=== PATIENT | male | born 1965 | race Caucasian/White ===

== ENCOUNTER 2019-08-31 11:20 | Emergency (ER) | payer BC ==
--- OUTSIDE RECORDS SUMMARY | 2019-08-31 12:04 | XMS REPORT | Continuity of Care Document ---
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 Onset: 09/12/2011 Indigestion Rai Benoit M.D. Onset: 09/12/2011 Mixed hyperlipidemia Rai Benoit M.D. Onset: 09/12/2011 Tobacco user Rai Benoit M.D. Onset: 09/12/2011 Peptic reflux disease Rai Benoit M.D. Onset: 09/12/2011 Umbilical hernia Rai Benoit M.D. Onset: 04/12/2012 Osteoarthritis Rai Benoit M.D. Onset: 10/01/2012 Blood chemistry abnormal Rai Benoit M.D. Onset: 10/01/2012 Gout Rai Benoit M.D. Onset: 10/01/2012 Essential hypertension Rai Benoit M.D. Onset: 07/30/2015 Social History Type Date Description Comments Sex Unknown Tobacco Use Start: Unknown Current Cigarette Smoker pt is a pack a day smoker for 25 years ETOH Use Occasionally consumes alcohol Tobacco Use Start: Unknown Patient is a current smoker, smokes every day Smoking Status Reviewed: 06/21/19 Patient is a current smoker, smokes every day Seat Belt/Car Seat Always uses seat belt Allergies, Adverse Reactions, Alerts Active Allergies Reaction Severity Comments Date Cassius Inhibitors 09/12/2011 Medications Active Medications SIG Qnty Indications Ordering Provider Date Amoxicillin 1 tab by mouth 14caps J20.9 Rai Benoit, 08/13/2019 500mg twice a day M.D. Capsules Prednisone 3 tabs for 3 18tabs J20.9 Rai Benoit, 08/13/2019 20mg Tablets days, then 2 M.D. tabs for 3 days then 1 tab for 3 days Potassium Chloride ER 1 Tab PO Daily 90tabs E87.6 Rai Benoit, 2019 M.D. 10Meq Tablets ER Ibuprofen 1 by mouth three 90tabs M10.9 Rai Benoit, 05/09/2019 800mg Tablets times a day as M.D. needed M15.9 Hydrochlorothiazide take 1 tablet by 90tabs I10 Rai Benoit, 2018 25mg Tablets mouth once daily M.D. Ventolin HFA 2 puffs q4-6 36gm J44.9 Rai Benoit, 06/04/2013 108(90Base) mcg/Act hours as needed M.D. Aerosol Colcrys 1 tab by mouth 90tabs M10.9 Rai Benoit, 04/10/2013 0.6mg Tablets every day M.D. Dexilant 1 by mouth every 90caps K30 Rai Benoit, 09/15/[address] day M.D. K21.0 Norvasc 1 by mouth every day 90tabs I10 Rai Benoit M.DMaxim 09/12/2011 10mg Tablets History Medications Knee Brace Adjustable on 12h off 12h 1units Rai Benoit, 05/09/2019 - Hinged/Maximum Support M.D. [facility] CPT Code Status Date Vaccine Lot # [id number] Given 04/17/2013 Flu Vaccine [id number] Given 04/12/2012 Flu Vaccine [id number] Given 05/13/2010 TDaP 11760 Given 05/13/2010 Flu Vaccine [id number] Refused 06/17/2019 Flu Virus Vaccine, Quadrivalent, Slit Virus, Im Use Vital Signs Date Vital Result Comment 08/13/2019 1:46pm BP Systolic 148 mmHg BP Diastolic 76 mmHg Height 72 inches 6'0" Weight 262.00 lb BMI (Body Mass Index) 35.5 kg/m2 Heart Rate 99 /min Respiratory Rate 16 /min 06/21/2019 8:44am BP Systolic 160 mmHg BP Diastolic 82 mmHg BP Systolic Recheck 158 mmHg BP Diastolic Recheck 76 mmHg Height 72 inches 6'0" Weight 265.00 lb BMI (Body Mass Index) 35.9 kg/m2 Heart Rate 107 /min Respiratory Rate 16 /min Results Test Acquired Date Facility Test Result H/L Range Note CBC With Diff 06/21/2019 [facility] WBC 9.0 10*3/uL (4.1-11.0) [address] (607)- - RBC 5.15 10*6/uL (4.60-6.10) HGB 16.8 g/dL (13.5-18.0) HCT 47.6 % (41.0-53.0) MCV 92.5 fL (80.0-95.0) MCH 32.6 pg High (27.0-32.0) MCHC 35.3 g/dL (32.0-36.0) RDW 12.9 % (10.5-14.5) PLT 253 10*3/uL (150-450) MPV 9.2 fL (7.1-10.7) Neut % 47.6 % (35.0-75.0) Lymph % 41.5 % (16.0-52.0) Johnston % 8.3 % High (0.0-8.0) Eos % 2.2 % (0.0-5.0) Baso % 0.4 % (0.0-4.0) Neut # 4.3 10*3/uL (1.8-7.7) Lymph # 3.7 10*3/uL (1.2-4.8) Johnston # 0.7 10*3/uL (0.0-0.8) Eos # 0.2 10*3/uL (0.0-0.5) Baso # 0.0 10*3/uL (0.0-0.2) CMP 06/21/2019 [facility] Sodium 143 mmol/L (136-145) [address] [facility] (606)- - Potassium 3.0 mmol/L Low (3.6-5.2) Chloride 101 mmol/L (100-108) Co2 35 mmol/L High (22-31) Anion Gap 7 mmol/L (7-16) Urea Nitrogen 9 mg/dL (7-24) Creatinine 0.93 mg/dL (0.80-1.30) BUN/Creat Ratio 9.7 RATIO Low (10.0-20.0) Glucose 136 mg/dL High (70-99) Calcium 9.0 mg/dL (8.4-10.2) Total Protein 7.3 g/dL (6.4-8.2) Albumin 3.8 g/dL (3.5-4.6) Globulin 3.5 g/dL (2.7-4.3) Alb/Glob Ratio 1.1 RATIO Alkaline Phosphatase 117 U/L (45-117) Bilirubin,Total 0.8 mg/dL (0.0-1.0) Ast (Sgot) 139 U/L High (11-39) Alt (SGPT) 191 U/L High (12-78) GFR >60 ml/min/1.73m2 (>59) GFR ( Amer) >60 ml/min/1.73m2 (>59) GFR Interpretation <SEE NOTE> 1 Hemoglobin A1c 06/21/2019 [facility] Hemoglobin A1c @ 6.0 % (4.0-6.0) 2 [address] [facility] (146)- - Est Average Glucose 126 mg/dL Lipid 06/21/2019 [facility] Cholesterol @ 189 mg/dL (0-200) [address] (007)- - Triglyceride @ 152 mg/dL (30-200) HDL Cholesterol @ 40 mg/dL Low (>40) 3 Chol/HDL Ratio 4.7 RATIO 4 LDL Chol (Calc) 119 mg/dL (<130) 5 Laboratory 06/21/2019 [facility] TSH,Ultrasensitive @ 4.640 High (0.360 -4.170) test finding [address] [facility] mIU/L (087)- - Uric Acid 9.9 mg/dL High (3.5-7.2) PSA Free And Total 06/21/2019 [facility] PSA Total 0.7 ng/mL (0.0-4.0 ) [facility] (607)- - PSA Free 0.2 ng/mL PSA % Free 29 % 6 Laboratory test 06/21/2019 [facility] 25 Hydroxy Vit 31 ng/mL (31-100 ) 7 finding Adeline Castelan @ (607)- - Esr 5 mm/h (0-20) 1 NORMAL KIDNEY FUNCTION OR MILD DISEASE - GFR >OR= 60 CHRONIC KIDNEY DISEASE - GFR 15 - 59 RENAL FAILURE - GFR <15 Est. GFR calculation based on the MDRD study equation, which assumes a steady state for creatinine. Est. GFR should not be used for medication dosing. 2 Performed using LEHR immunoassay. Care must be taken when interpreting HbA1c results in patients with a hemoglobin variant or decreased erythrocyte lifespan. Values 5.7 - 6.4% suggest prediabetes. Values >=6.5% are diagnostic for diabetes. REFERENCE: DIABETES CARE 2018: 41(S13-S27). 3 PER NCEP ATP III GUIDELINES: RESULTS LOWER THAN 40 MG/DL ARE SUGGESTIVE OF INCREASED RISK FOR CORONARY ARTERY DISEASE. RESULTS > OR = TO 60 MG/DL ARE CONSIDERED A NEGATIVE RISK FACTOR. 4 INTERPRETATION OF CHOL-HDL RATIO CHD RISK FEMALE MALE VERY HIGH >8.3 >14.3 HIGH 5.6- 8.3 6.7- 14.3 AVERAGE 3.7- 5.6 4.0- 6.7 BELOW AVERAGE 2.5- 3.7 2.7- 4.0 PROTECTED <2.5 <2.7 5 PER NCEP ATP III GUIDELINES: OPTIMAL < 100 NEAR OPTIMAL 100 - 129 BORDERLINE HIGH 130 - 159 HIGH 160 - 189 VERY HIGH > 189 6 % FREE PSA PROBABILITY OF CANCER 0 - 10% 56% 10 - 15% 28% 15 - 20% 20% 20 - 25% 16% GREATER THAN 25% 8% THE FREE PSA PERCENTAGE IS AN AID IN DISTINGUISHING PROSTATE CANCER FROM BENIGN PROSTATIC CONDITIONS IN MEN AGE 50 AND OLDER WITH A TOTAL PSA BETWEEN 3 AND 10 NG/ML AND NEGATIVE DIGITAL RECTAL EXAMINATION FINDINGS. PROSTATIC BIOPSY IS REQUIRED FOR THE DIAGNOSIS OF CANCER. (See: KEITH 1998; 279: 8171-5853) METHOD USED TO ASSAY BOTH FREE PSA AND TOTAL PSA IS SIEMENS inmobly LOCI CHEMILUMINESCENT IMMUNOASSAY (CALIBRATION TRACEABLE TO WHO , 1998, 96/668). RESULTS SHOULD NOT BE INTERPRETED ABSOLUTE EVIDENCE FOR THE PRESENCE OR ABSENCE OF MALIGNANT DISEASE. VALUES OBTAINED WITH DIFFERENT ASSAY METHODS OR KITS CANNOT BE USED INTERCHANGEABLY. 7 A REVIEW OF THE LITERATURE SUGGESTS THE FOLLOWING RANGES FOR THE CLASSIFICATION OF 25-OH VITAMIN D STATUS: VITAMIN D STATUS 25-OH VITAMIN D DEFICIENCY <20 NG/ML INSUFFICIENCY 20-30 NG/ML SUFFICIENCY 31 - 100 NG/ML TOXICITY > 100 NG/ML A PEDIATRIC REFERENCE RANGE HAS NOT BEEN ESTABLISHED USING THIS METHOD. Procedures Date Code Description Status 08/13/2019 55884 EKG Completed 04/05/2018 [id number] Colonoscopy Completed Medical Devices Description No Information Available Encounters Type Date Location Provider Dx Diagnosis Office Visit 06/21/2019 Rai Moss, I10 Essential (primary) 9:15a M.D. hypertension E78.2 Mixed hyperlipidemia R73.01 Impaired fasting glucose M10.9 Gout, unspecified R97.20 Elevated prostate specific antigen [PSA] J44.9 Chronic obstructive pulmonary disease, unspecified K21.0 Gastro-esophageal reflux disease with esophagitis F10.10 Alcohol abuse, uncomplicated K30 Functional dyspepsia F17.210 Nicotine dependence, cigarettes, uncomplicated L20.9 Atopic dermatitis, unspecified J30.9 Allergic rhinitis, unspecified K42.9 Umbilical hernia without obstruction or gangrene M15.9 Polyosteoarthritis, unspecified M20.10 Hallux valgus (acquired), unspecified foot E66.3 Overweight K76.9 Liver disease, unspecified E55.9 Vitamin D deficiency, unspecified 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 I10 Essential ( primary) hypertension E78.2 Mixed hyperlipidemia R73.01 Impaired fasting glucose M10.9 Gout, unspecified R97.20 Elevated prostate specific antigen [PSA] J44.9 Chronic obstructive pulmonary disease, unspecified K21.0 Gastro-esophageal reflux disease with esophagitis F10.10 Alcohol abuse, uncomplicated K30 Functional dyspepsia F17.210 Nicotine dependence, cigarettes, uncomplicated L20.9 Atopic dermatitis, unspecified J30.9 Allergic rhinitis, unspecified K42.9 Umbilical hernia without obstruction or gangrene M15.9 Polyosteoarthritis, unspecified M20.10 Hallux valgus (acquired), unspecified foot E66.3 Overweight K76.9 Liver disease, unspecified E55.9 Vitamin D deficiency, unspecified 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, bilateral M79.604 Pain in right leg R05 Cough R09.81 Nasal congestion H90.6 Mixed conductive and sensorineural hearing loss, bilateral G47.33 Obstructive sleep apnea (adult) (pediatric) M25.561 Pain in right knee Z23 Encounter for immunization Assessments Date Code Description Provider 08/13/2019 I10 Essential (primary) hypertension John Casillas, [employer] 08/13/2019 E78.2 Mixed hyperlipidemia John Casillas, [employer] 08/13/2019 R73.01 Impaired fasting glucose John Casillas, [employer] 08/13/2019 M10.9 Gout, unspecified John Casillas, [employer] 08/13/2019 R97.20 Elevated prostate specific antigen [PSA] John Casillas, [employer] 08/13/2019 J44.9 Chronic obstructive pulmonary disease, John Casillas, [employer] unspecified 08/13/2019 K21.0 Gastro-esophageal reflux disease with John Casillas, [employer] esophagitis 08/13/2019 F10.10 Alcohol abuse, uncomplicated John Casillas, [employer] 08/13/2019 K30 Functional dyspepsia John Casillas, [employer] 08/13/2019 F17.210 Nicotine dependence, cigarettes, John Casillas, [employer] uncomplicated 08/13/2019 L20.9 Atopic dermatitis, unspecified John Casillas, [employer] 08/13/2019 J30.9 Allergic rhinitis, unspecified Casillas, John P, [employer] 08/13/2019 K42.9 Umbilical hernia without obstruction or Casillas, John Coleman, [employer] gangrene 08/13/2019 M15.9 Polyosteoarthritis, unspecified Casillas, John P, [employer] 08/13/2019 M20.10 Hallux valgus (acquired), unspecified foot Casillas, John P, [employer] 08/13/2019 E66.3 Overweight Casillas, John P, [employer] 08/13/2019 K76.9 Liver disease, unspecified Casillas, John P, [employer] 08/13/2019 E55.9 Vitamin D deficiency, unspecified Casillas, John P, [employer] 08/13/2019 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6 Hypokalemia John Casillas P, [employer] 08/13/2019 D48.5 Neoplasm of uncertain behavior of skin John Casillas, [employer] 08/13/2019 E03.9 Hypothyroidism, unspecified CasillasJohn P, [employer] 08/13/2019 J20.9 Acute bronchitis, unspecified John Casillas P, [employer] 07/12/2019 I10 Essential (primary) hypertension Rai Benoit M.D. 07/12/2019 E78.2 Mixed hyperlipidemia Rai Benoit M.D. 07/12/2019 R73.01 Impaired fasting glucose Rai Benoit M.D. 07/12/2019 M10.9 Gout, unspecified Rai Benoit M.D. 07/12/2019 R97.20 Elevated prostate specific antigen [PSA] Rai Benoit M.D. 07/12/2019 J44.9 Chronic obstructive pulmonary disease, Rai Benoit M.D. unspecified 07/12/2019 K21.0 Gastro-esophageal reflux disease with Rai Benoit M.D. esophagitis 07/12/2019 F10.10 Alcohol abuse, uncomplicated Rai Benoit M.D. 07/12/2019 K30 Functional dyspepsia Rai Benoit M.D. 07/12/2019 F17.210 Nicotine dependence, cigarettes, Rai Benoit M.D. uncomplicated 07/12/2019 L20.9 Atopic dermatitis, unspecified Rai Benoit M.D. 07/12/2019 J30.9 Allergic rhinitis, unspecified Rai Benoit M.D. 07/12/2019 K42.9 Umbilical hernia without obstruction or Rai Benoit M.D. gangrene 07/12/2019 M15.9 Polyosteoarthritis, unspecified Rai Benoit M.D. 07/12/2019 M20.10 Hallux valgus (acquired), unspecified foot Rai Benoit M.D. 07/12/2019 E66.3 Overweight Rai Benoit M.D. 07/12/2019 K76.9 Liver disease, unspecified Rai Benoit M.D. 07/12/2019 E55.9 Vitamin D deficiency, unspecified Rai Benoit M.D. 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 07/12/2019 M79.604 Pain in right leg Rai Benoit M.D. 07/12/2019 R05 Cough Rai Benoit M.D. 07/12/2019 R09.81 Nasal congestion Rai Benoit M.D. 07/12/2019 H90.6 Mixed conductive and sensorineural hearing Rai Benoit M.D. loss, bilateral 07/12/2019 G47.33 Obstructive sleep apnea (adult) (pediatric) Rai Benoit M.D. 07/12/2019 H92.03 Otalgia, bilateral Rai Benoit M.D. 07/05/2019 I10 Essential (primary) hypertension Rai Benoit M.D. 07/05/2019 E78.2 Mixed hyperlipidemia Rai Benoit M.D. 07/05/2019 R73.01 Impaired fasting glucose Rai Benoit M.D. 07/05/2019 M10.9 Gout, unspecified Rai Benoit M.D. 07/05/2019 R97.20 Elevated prostate specific antigen [PSA] Rai Benoit M.D. 07/05/2019 J44.9 Chronic obstructive pulmonary disease, Rai Benoit M.D. unspecified 07/05/2019 K21.0 Gastro-esophageal reflux disease with Rai Benoit M.D. esophagitis 07/05/2019 F10.10 Alcohol abuse, uncomplicated Rai Benoit M.D. 07/05/2019 K30 Functional dyspepsia Rai Benoit M.D. 07/05/2019 F17.210 Nicotine dependence, cigarettes, Rai Benoit M.D. uncomplicated 07/05/2019 L20.9 Atopic dermatitis, unspecified Rai Benoit M.D. 07/05/2019 J30.9 Allergic rhinitis, unspecified Rai Benoit M.D. 07/05/2019 K42.9 Umbilical hernia without obstruction or Rai Benoit M.D. gangrene 07/05/2019 M15.9 Polyosteoarthritis, unspecified Rai Benoit M.D. 07/05/2019 M20.10 Hallux valgus (acquired), unspecified foot Rai Benoit M.D. 07/05/2019 E66.3 Overweight Rai Benoit M.D. 07/05/2019 K76.9 Liver disease, unspecified Rai Benoit M.D. 07/05/2019 E55.9 Vitamin D deficiency, unspecified Rai Benoit M.D. 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 07/05/2019 M79.604 Pain in right leg Rai Benoit M.D. 07/05/2019 R05 Cough Rai Benoit M.D. 07/05/2019 R09.81 Nasal congestion Rai Benoit M.D. 07/05/2019 H90.6 Mixed conductive and sensorineural hearing Rai Benoit M.D. loss, bilateral 07/05/2019 G47.33 Obstructive sleep apnea (adult) (pediatric) Rai Benoit M.D. 07/05/2019 H92.03 Otalgia, bilateral Rai Benoit M.D. 06/21/2019 I10 Essential (primary) hypertension Rai Benoit M.D. 06/21/2019 E78.2 Mixed hyperlipidemia Rai Benoit M.D. 06/21/2019 R73.01 Impaired fasting glucose Rai Benoit M.D. 06/21/2019 M10.9 Gout, unspecified Rai Benoit M.D. 06/21/2019 R97.20 Elevated prostate specific antigen [PSA] Rai Benoit M.D. 06/21/2019 J44.9 Chronic obstructive pulmonary disease, Rai Benoit M.D. unspecified 06/21/2019 K21.0 Gastro-esophageal reflux disease with Rai Benoit M.D. esophagitis 06/21/2019 F10.10 Alcohol abuse, uncomplicated Rai Benoit M.D. 06/21/2019 K30 Functional dyspepsia Rai Benoit M.D. 06/21/2019 F17.210 Nicotine dependence, cigarettes, Rai Benoit M.D. uncomplicated 06/21/2019 L20.9 Atopic dermatitis, unspecified Rai Benoit M.D. 06/21/2019 J30.9 Allergic rhinitis, unspecified Rai Benoit M.D. 06/21/2019 K42.9 Umbilical hernia without obstruction or Rai Benoit M.D. gangrene 06/21/2019 M15.9 Polyosteoarthritis, unspecified Rai Benoit M.D. 06/21/2019 M20.10 Hallux valgus (acquired), unspecified foot Rai Benoit M.D. 06/21/2019 E66.3 Overweight Rai Benoit M.D. 06/21/2019 K76.9 Liver disease, unspecified Rai Benoit M.D. 06/21/2019 E55.9 Vitamin D deficiency, unspecified Rai Benoit M.D. 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 06/21/2019 M79.604 Pain in right leg Rai Benoit M.D. 06/21/2019 R05 Cough Rai Benoit M.D. 06/21/2019 R09.81 Nasal congestion Rai Benoit M.D. 06/21/2019 H90.6 Mixed conductive and sensorineural hearing Rai Benoit M.D. loss, bilateral 06/21/2019 G47.33 Obstructive sleep apnea (adult) (pediatric) Rai Benoti M.D. 06/21/2019 M25.561 Pain in right knee Rai Benoit M.D. 06/21/2019 H92.03 Otalgia, bilateral CyRai M.D. 05/09/2019 I10 Essential (primary) hypertension Basil Salgado, N.P. 05/09/2019 E78.2 Mixed hyperlipidemia Basil Salgado, N.P. 05/09/2019 R73.01 Impaired fasting glucose Basil Salgado, N.P. 05/09/2019 M10.9 Gout, unspecified Basil Salgado, N.P. 05/09/2019 R97.20 Elevated prostate specific antigen [PSA] Basil Salgado, N.P. 05/09/2019 J44.9 Chronic obstructive pulmonary disease, Basil Salgado, N.P. unspecified 05/09/2019 K21.0 Gastro-esophageal reflux disease with Basil Salgado, N.P. esophagitis 05/09/2019 F10.10 Alcohol abuse, uncomplicated Basil Salgado, N.P. 05/09/2019 K30 Functional dyspepsia Basil Salgado N.P. 05/09/2019 F17.210 Nicotine dependence, cigarettes, Basil Salgado, N.P. uncomplicated 05/09/2019 L20.9 Atopic dermatitis, unspecified Basil Salgado, N.P. 05/09/2019 J30.9 Allergic rhinitis, unspecified Basil Salgado, N.P. 05/09/2019 K42.9 Umbilical hernia without obstruction or Basil Salgado, N.P. gangrene 05/09/2019 M15.9 Polyosteoarthritis, unspecified Basil Salgado, N.P. 05/09/2019 M20.10 Hallux valgus (acquired), unspecified foot Basil Salgado, N.P. 05/09/2019 E66.3 Overweight Basil Salgado, N.P. 05/09/2019 K76.9 Liver disease, unspecified Basil Salgado, N.P. 05/09/2019 E55.9 Vitamin D deficiency, unspecified Basil Salgado, N.P. 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 05/09/2019 M79.604 Pain in right leg Basil Salgado, N.P. 05/09/2019 R05 Cough Basil Salgado, N.P. 05/09/2019 R09.81 Nasal congestion Basil Salgado N.P. 05/09/2019 H90.6 Mixed conductive and sensorineural hearing Basil Salgado N.P. loss, bilateral 05/09/2019 G47.33 Obstructive sleep apnea (adult) (pediatric) Basil Salgado N.P. 05/09/2019 M25.561 Pain in right knee Basil Salgado N.P. 05/09/2019 Z23 Encounter for immunization Basil Salgado N.P. Plan of Treatment 08/13/2019 - John Casillas, NPI10 Essential (primary) hypertensionComments: CHECK BP TIW ( PRN)DIET AND FLUID COUNSELING LOW SODIUM DIETWT LOSSF/U LAB SMOKING XJJCXQKZYG84.2 Mixed hyperlipidemiaComments:DIET REVIEWED CONTINUE DIETWT LOSSF/U LAB FBWR73.01 Impaired fasting glucoseComments:F/U HGAICFS QAC AN HS PRNLOW GLUCOSE DIETM10.9 Gout, unspecifiedComments:EXERCISE/HEAT/MESSAGE TAKE MEDICATIONS DIRECTEDF/U DIRECTEDCALL WITH QUESTIONS OR CONCERNSWEIGHT BEARING UBEAZQWDWW47.20 Elevated prostate specific antigen [ PSA]Comments:OBSERVEF/U WITH UROLOGYASYMPTOMATIC AT THIS TIMEJ44.9 Chronic obstructive pulmonary disease, unspecifiedComments:INCREASE PO FLUIDRESTSMOKING AFKEOKWTGK49.0 Gastro-esophageal reflux disease with esophagitisComments:AVOID CAFFEINE, ETOH AND SPICY FOODSTUMS OR MYLANTA PRN CALL WITH PROBLEMS OR CONCERNSSMOKING QXXHILXPLY07.10 Alcohol abuse, uncomplicatedComments:ETOH ABSTINENCECOUNCELLING AND [id number] Functional dyspepsiaComments:AVOID CAFFEINE, ETOH AND SPICY FOODSTUMS OR MYLANTA PRN CALL WITH PROBLEMS OR CONCERNSSMOKING BXVHAEGGVH09.210 Nicotine dependence, cigarettes, uncomplicatedComments:SMOKING CESSATION COUNCELLING MORE THAN 4 MINUTES SPENT DISSUCUSING SMOKING CESSATION NVJTNIM01.9 Atopic dermatitis, unspecifiedComments :SKIN CARE INSTRUCTIONS LOTION OR BABY OIL 2-3 APPLICATION PER DAYUSE MOISTURIZING SOAPAVOID PROLONGED WATER EXPOSUREAVOID USING HOT WATER IN TDIPZEX35.9 Allergic rhinitis, unspecifiedComments:INCREASE PO FLUID USE ANTIHISTAMINE PRN SECOND HAND SMOKING AVOIDANCE SMOKING VKFLSWGHPP00.9 Umbilical hernia without obstruction or gangreneComments:STABLE ABDOMINAL BINDER PRNM15.9 Polyosteoarthritis, unspecifiedComments:EXERCISE/HEAT/ MESSAGETYLENOL OR MOTRIN PRNAVOID HEAVY LIFTINGWT LOSSM20.10 Hallux valgus ( acquired), unspecified footComments:EXERCISE/HEAT/MESSAGETYLENO OR MOTRIN PRNWT LOSSTHICK SHOESUSE SHOE YDWMAIIKO34.3 OverweightComments:WT LOSS OPTIONS EXERCISE INSTRUCTIONSDIET QVJGNMAKSHYD16.9 Liver disease, unspecifiedComments: ASYMPTOMATIC AND STABLEF/ULABAVOID ETOH RSLAMN47.9 Vitamin D deficiency, unspecifiedComments:INCREASE EXPOSURE TO SUNREVIEW OF DIET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, bilateralComments:[place],LAB BY TAUIYUZNSQYUUU49.604 Pain in right legComments:TYLENOL OR MOTRIN PRN EXERCISE/HEAT/NWPLAAHT74.6 Mixed conductive and sensorineural hearing loss, bilateralComments:OBSERVE F/U WITH ENT PRN SMOKING EKYKKZILXE92.33 Obstructive sleep apnea (adult) (pediatric)Comments: OBSERVEWT LOSS SMOKING TZFFVABDAE66.561 Pain in right kneeComments:[id number] HxhjhN92.02 Shortness of ssmvcfB16.6 HypokalemiaNew Medication:Potassium Chloride ER 10 Meq - 1 Tab PO DailyFollow up:1 mwjowM43.5 Neoplasm of uncertain behavior of skinReferral:[facility] [place], ZllstvvbxdzJ43.9 Hypothyroidism, tmrxkoazlqrH10.9 Acute bronchitis, unspecifiedNew Medication: Amoxicillin 500 mg - 1 tab by mouth twice a dayPrednisone 20 mg - 3 tabs for 3 days, then 2 tabs for 3 days then 1 tab for 3 days Functional Status Description No Information Available Mental Status Description No Information Available Referrals Refer to Dr Reason for Referral Status Appt Date [facility] [place] IRREGULAR MULTI COLOR RAISED LESION TO Created RIGHT POSTERIOR UPPER ARM [address] [place] [address] [phone]
--- OUTSIDE RECORDS SUMMARY | 2019-08-31 12:04 | XMS REPORT | Continuity of Care Document ---
:1965 External Reference #:[id number] Author Name John Casillas NP (transmitted by agent of provider [employer]) Address [address] [facility]/[address] [place] [address] Care Team Providers Name Role Phone Rai Benoit MD - Family Medicine Care Team Information Drafter Seismograph Problems Active Problems Provider Date Benign essential hypertension Ria Benoit M.D. Onset: 09/12/2011 Indigestion Rai Benoit [...] Benoit, 06/04/2013 108(90Base) mcg/Act hours as needed M.DMaxim Aerosol Colcrys 1 tab by mouth 90tabs M10.9 Rai Benoit, 04/10/2013 0.6mg Tablets every day M.DMaxim Dexilant 1 by mouth every 90caps K30 Rai Benoit, 09/15/[address] jean [place] K21.0 Norvasc 1 by mouth every day 90tabs I10 Rai Benoit M.D. 09/12/2011 10mg Tablets History Medications Knee Brace Adjustable on 12h off 12h 1units Rai Benoit, 05/09/2019 - Hinged/Maximum Support M.DMaxim 06/21/2019 [facility] [place] CPT Code Status Date Vaccine Lot # [id number] Given 04/17/2013 Flu Vaccine [id number] Given 04/12/2012 Flu Vaccine [id number] Given 05/13/2010 TDaP [id number] Given 05/13/2010 Flu Vaccine [id number] Refused 06/17/2019 Flu Virus Vaccine, Quadrivalent, Slit [...] Date Facility Test Result H/L Range Note CBS W/Automated 08/14/2019 [place] White Blood 9.4 K/uL Normal 3.4-10.5 1 Diff Count Red Blood Count 4.87 M/uL Normal 4.20-5.80 Hemoglobin 15.6 gm/dL Normal 12.8-17.0 Hematocrit 45.4 % Normal 38.0-48.0 Mean Cell Volume 93.2 fl Normal 80.0-96.0 Mean Corpuscular HGB 32.0 pg Normal 27.0-33.0 Mean Corpuscular HGB Conc 34.4 g/dL Normal 31.7-36.0 Platelet Count 224 K/uL Normal 155-360 Red Cell Distri Width SD 43.2 fl Normal 36-51 Red Cell Distri Width %CV 12.7 % Normal 11.6-15.8 Mean Platelet Volume 10.9 fl High 6.6-10.6 Neut% 50.8 % Normal 33.0-73.0 Lymph % 35.9 % Normal 20.0-42.0 [place] % 8.8 % Normal 0.0-10.0 Eo% 3.0 % Normal 0.0-6.6 Bas% 1.1 % Normal 0.0-1.1 Immature Grans 0.4 % Normal 0.0-5.0 NRBC % 0.0 /100WBC < 10/ 100 WBC Neut# 4.78 K/uL Normal 1.8-7.0 Lymph # 3.38 K/uL Normal 1.0-4.0 [place] # 0.83 K/uL High 0.0-0.8 Eos # 0.28 K/uL Normal 0.0-0.5 Baso # 0.10 K/uL Normal 0.0-0.1 Immature Grans Absolute 0.04 K/uL NRBC # 0.00 K/uL Basic Metabolic Panel 08/14/2019 [place] Glucose 143 mg/dL High 74-106 BUN 10 mg/dL Normal 7-18 Creatinine 0.7 mg/dL Normal 0.6-1.3 Glom Filtration Rate, Estimate >60 mL/min >60 If >60 mL/min >60 2 BUN/Creat 14.2 ratio Sodium 140 mmol/L Normal 136-145 Potassium 3.1 mmol/L Low 3.5-5.1 Chloride 103 mmol/L Normal 98-107 Carbon Dioxide 32 mmol/L Normal 21-32 Anion Gap 5 mEq/L Low 8-16 Calcium 8.9 mg/dL Normal 8.5-10.1 Ua RFX Micro & Culture II 08/13/2019 [place] Urine Color Yellow Yellow Urine Clarity Slightly Cloudy Clear Urine Glucose - Dipstick NEGATIVE mg/dL Negative Urine Bilirubin - Dipstick NEGATIVE Negative Urine Ketone NEGATIVE mg/dL Negative Urine Specific [place] 1.016 Normal 1.010-1.030 Urine Blood NEGATIVE Negative Urine PH 7.0 Normal 6.5-7.5 Urine Protein - Dipstick NEGATIVE mg/dL Negative Urine Urobilinogen - Dipstick < 2.0 mg/dL < 2.0 Urine Nitrite - Dipstick NEGATIVE Negative Urine Leuk Esterase NEGATIVE Negative Source: URINE, CLEAN CAT <SEE NOTE> 3 Aot Request 08/13/2019 [place] Aot Request Already done 4, 5 Tests to be added: MAGNESIUM CBC With Diff 06/21/2019 [facility] [place] WBC 9.0 10*3/uL (4.1-11.0) [address] [facility] (607)- - RBC 5.15 10*6/uL (4.60-6.10) HGB 16.8 g/dL (13.5-18.0) HCT 47.6 % (41.0-53.0) MCV 92.5 fL (80.0-95.0) MCH 32.6 pg High (27.0-32.0) MCHC 35.3 g/dL (32.0-36.0) RDW 12.9 % (10.5-14.5) PLT 253 10*3/uL (150-450) MPV 9.2 fL (7.1-10.7) Neut % 47.6 % (35.0-75.0) Lymph % 41.5 % (16.0-52.0) [place] % 8.3 % High (0.0-8.0) Eos % 2.2 % (0.0-5.0) Baso % 0.4 % (0.0-4.0) Neut # 4.3 10*3/uL (1.8-7.7) Lymph # 3.7 10*3/uL (1.2-4.8) [place] # 0.7 10*3/uL (0.0-0.8) Eos # 0.2 10*3/uL (0.0-0.5) Baso # 0.0 10*3/uL (0.0-0.2) CMP 06/21/2019 [facility] [place] Sodium 143 mmol/L (136-145) [address] [facility] (607)- - Potassium 3.0 mmol/L Low (3.6-5.2) Chloride [...] >60 ml/min/1.73m2 (>59) GFR Interpretation <SEE NOTE> 6 Hemoglobin A1c 06/21/2019 [facility] [place] Hemoglobin A1c @ 6.0 % (4.0-6.0) 7 [address] [place] (607)- - Est Average Glucose 126 mg/dL Lipid 06/21/2019 [facility] [place] Cholesterol @ 189 mg/dL (0-200) [address] [place] (607)- - Triglyceride @ 152 mg/dL (30-200) HDL Cholesterol @ 40 mg/dL Low (>40) 8 Chol/HDL Ratio 4.7 RATIO 9 LDL Chol (Calc) 119 mg/dL (<130) 10 Laboratory 06/21/2019 [facility] [place] TSH,Ultrasensitive @ 4.640 High (0.360 -4.170) test finding 113 [employer] mIU/L (607)- - Uric Acid 9.9 mg/dL High (3.5-7.2) PSA Free And Total 06/21/2019 [facility] [place] PSA Total 0.7 ng/mL (0.0-4.0 ) [address] [facility] (607)- - PSA Free 0.2 ng/mL PSA % Free 29 % 11 Laboratory test 06/21/2019 [facility] 25 Hydroxy Vit 31 ng/mL (31-100 ) 12 finding [address] [place] D @ (607)- - Esr 5 mm/h (0-20) 1 PARAXYSMAL AFIB W/RVR 2 Note: Persistent reduction for 3 months or more in an eGFR <60 mL/min/1.73 m2 defines CKD. Patients with eGFR values >/=60 mL/min/1.73 m2 may also have CKD if evidence of persistent proteinuria is present. The original MDRD equation for estimated GFR is not valid for patients less than 18 years of age. Additional information may be found at www.kdoqi.org. 3 URINE, CLEAN CATCH 4 IRREGULAR HEART BEAT/SENT BY DOCTOR 5 Tests: MAGNESIUM Instructions: 6 NORMAL KIDNEY FUNCTION OR MILD DISEASE - GFR >OR= 60 CHRONIC KIDNEY DISEASE - GFR 15 - 59 RENAL FAILURE - GFR <15 Est. GFR calculation based on the MDRD study equation, which assumes a steady state for creatinine. Est. GFR should not be used for medication dosing. 7 Performed using Siemens Bathgate immunoassay. Care must be taken when interpreting HbA1c results in patients with a hemoglobin variant or decreased erythrocyte lifespan. Values 5.7 - 6.4% suggest prediabetes. Values >=6.5% are diagnostic for diabetes. REFERENCE: DIABETES CARE 2018: 41(S13-S27). 8 PER NCEP ATP III GUIDELINES: RESULTS LOWER THAN 40 MG/DL ARE SUGGESTIVE OF INCREASED RISK FOR CORONARY ARTERY DISEASE. RESULTS > OR = TO 60 MG/DL ARE CONSIDERED A NEGATIVE RISK FACTOR. 9 INTERPRETATION OF CHOL-HDL RATIO CHD RISK FEMALE MALE VERY HIGH >8.3 >14.3 HIGH 5.6- 8.3 6.7- 14.3 AVERAGE 3.7- 5.6 4.0- 6.7 BELOW AVERAGE 2.5- 3.7 2.7- 4.0 PROTECTED <2.5 <2.7 10 PER NCEP ATP III GUIDELINES: OPTIMAL < 100 NEAR OPTIMAL 100 - 129 BORDERLINE HIGH 130 - 159 HIGH 160 - 189 VERY HIGH > 189 11 % FREE PSA PROBABILITY OF CANCER 0 [...] DIAGNOSIS OF CANCER. (See: KEITH 1998; 279: 7561-8178) METHOD USED TO ASSAY BOTH FREE PSA AND TOTAL PSA IS SIEMENS Anew OncologyTA LOCI CHEMILUMINESCENT IMMUNOASSAY (CALIBRATION TRACEABLE TO WHO 1998, 96/668). RESULTS SHOULD NOT BE INTERPRETED ABSOLUTE EVIDENCE FOR THE PRESENCE OR ABSENCE OF MALIGNANT DISEASE. VALUES OBTAINED WITH DIFFERENT ASSAY METHODS OR KITS CANNOT BE USED INTERCHANGEABLY. 12 A REVIEW OF THE LITERATURE SUGGESTS THE FOLLOWING RANGES FOR THE CLASSIFICATION OF 25-OH VITAMIN D STATUS: VITAMIN D STATUS 25-OH VITAMIN D DEFICIENCY <20 NG/ML INSUFFICIENCY 20-30 NG/ML SUFFICIENCY 31 - 100 NG/ML TOXICITY > 100 NG/ML A PEDIATRIC REFERENCE RANGE HAS NOT BEEN ESTABLISHED USING THIS METHOD. Procedures Date Code Description Status 08/13/2019 24124 EKG Completed 04/05/2018 [id number] Colonoscopy Completed Medical Devices Description No Information Available Encounters Type Date Location Provider Dx Diagnosis Office Visit 08/13/2019 2:00p John Benjamin, [place] I10 Essential ( primary) hypertension E78.2 Mixed [...] uveitis, bilateral M79.604 Pain in right leg H90.6 Mixed conductive and sensorineural hearing loss, bilateral G47.33 Obstructive sleep apnea (adult) (pediatric) M25.561 Pain in right knee R05 Cough R06.02 Shortness of breath E87.6 Hypokalemia D48.5 Neoplasm of uncertain behavior of skin E03.9 Hypothyroidism, unspecified J20.9 Acute bronchitis, unspecified I48.0 Paroxysmal atrial fibrillation Office Visit 06/21/2019 9:15a Rai Moss, [place] Ess[place] ( primary) M.D. hypertension E78.2 Mixed hyperlipidemia R73.01 Impaired [...] 08/13/2019 I10 Essential (primary) hypertension John Casillas, [place] 08/13/2019 E78.2 Mixed hyperlipidemia John Casillas, [place] 08/13/2019 R73.01 Impaired fasting glucose John Casillas, [place] 08/13/2019 R05 Cough Rai Benoit M.D. 08/13/2019 M10.9 Gout, unspecified John Casillas, [place] 08/13/2019 R97.20 Elevated prostate specific antigen [PSA] John Casillas, [place] 08/13/2019 J44.9 Chronic obstructive pulmonary disease, CasillasJohn suazo, [place] unspecified 08/13/2019 K21.0 Gastro-esophageal reflux disease with John Casillas, [place] esophagitis 08/13/2019 J20.9 Acute bronchitis, unspecified Rai Benoit M.D. 08/13/2019 F10.10 Alcohol abuse, uncomplicated John Casillas, [place] 08/13/2019 R06.02 Shortness of breath Rai Benoit M.D. 08/13/2019 K30 Functional dyspepsia John Casillas, [place] 08/13/2019 I48.0 Paroxysmal atrial fibrillation Rai Benoit M.D. 08/13/2019 F17.210 Nicotine dependence, cigarettes, John Casillas, [place] uncomplicated 08/13/2019 L20.9 Atopic dermatitis, unspecified John Casillas, [place] 08/13/2019 H92.03 Otalgia, bilateral CyRai M.D. 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, bilateral John Casillas, [place] 08/13/2019 M79.604 Pain in right leg John Casillas, [place] 08/13/2019 H90.6 Mixed conductive and sensorineural hearing John Casillas, [place] loss, bilateral 08/13/2019 G47.33 Obstructive sleep apnea (adult) (pediatric) John Casillas , [place] 08/13/2019 M25.561 Pain in right knee John Casillas, [place] 08/13/2019 R05 Cough John Casillas, [place] 08/13/2019 R06.02 Shortness of breath John Casillas, [place] 08/13/2019 E87.6 Hypokalemia John Casillas, [place] 08/13/2019 D48.5 Neoplasm of uncertain behavior of skin John Casillas, [place] 08/13/2019 E03.9 Hypothyroidism, unspecified John Casillas P, [place] 08/13/2019 J20.9 Acute bronchitis, unspecified John Casillas, [place] 08/13/2019 I48.0 Paroxysmal atrial fibrillation John Casillas, [place] 07/12/2019 I10 Essential (primary) hypertension Rai Benoit [...] sleep apnea (adult) (pediatric) Rai Benoit M.D. 06/21/2019 M25.561 Pain in right knee Rai Benoit M.D. 06/21/2019 H92.03 Otalgia, bilateral Rai Benoit M.D. 05/09/2019 I10 Essential (primary) hypertension Basil Salgado N.P. 05/09/2019 E78.2 Mixed hyperlipidemia Basil Salgado N.P. 05/09/2019 R73.01 Impaired fasting glucose Basil Salgado N.PMaxim 05/09/2019 M10.9 Gout, unspecified Basil Salgado N.PMaxim 05/09/2019 R97.20 Elevated prostate specific antigen [PSA] Basil Salgado N.PMaxim 05/09/2019 J44.9 Chronic obstructive pulmonary disease, Basil Salgado N.P. unspecified 05/09/2019 K21.0 Gastro-esophageal reflux disease with Basil Salgado N.PMaxim esophagitis 05/09/2019 F10.10 Alcohol abuse, uncomplicated Basil Salgado N.P. 05/09/2019 K30 Functional dyspepsia Basil Salgado N.PMaxim 05/09/2019 F17.210 Nicotine dependence, cigarettes, Basil Salgado N.P. uncomplicated 05/09/2019 L20.9 Atopic dermatitis, unspecified [...] Salgado, N.P. 05/09/2019 R09.81 Nasal congestion Basil Salgado, N.P. 05/09/2019 H90.6 Mixed conductive and sensorineural hearing Basil Salgado N.P. loss, bilateral 05/09/2019 G47.33 Obstructive sleep apnea (adult) (pediatric) Basil Salgado , N.P. 05/09/2019 M25.561 Pain in right knee Basil Salgado, N.P. 05/09/2019 Z23 Encounter for immunization Basil Salgado N.P. Plan of Treatment 08/13/2019 - John Casillas, NPI10 Essential (primary) hypertensionComments: CHECK BP TIW ( PRN)DIET AND FLUID COUNSELING LOW SODIUM DIETWT LOSSF/U LAB SMOKING NWBMTTCMWA70.2 Mixed hyperlipidemiaComments:DIET REVIEWED CONTINUE DIETWT LOSSF/U LAB FBWR73.01 Impaired fasting glucoseComments:F/U HGAICFS QA AN HS PRNLOW GLUCOSE DIETM10.9 Gout, unspecifiedComments:EXERCISE/HEAT/MESSAGE TAKE MEDICATIONS DIRECTEDF/U DIRECTEDCALL WITH QUESTIONS OR CONCERNSWEIGHT BEARING YBYCDJLNHD78.20 Elevated prostate specific antigen [ PSA]Comments:OBSERVEF/U WITH UROLOGYASYMPTOMATIC AT THIS TIMEJ44.9 Chronic obstructive pulmonary disease, unspecifiedComments:INCREASE PO FLUIDRESTSMOKING WNMGWNULYP29.0 Gastro-esophageal reflux disease with esophagitisComments:AVOID CAFFEINE, ETOH AND SPICY FOODSTUMS OR MYLANTA PRN CALL WITH PROBLEMS OR CONCERNSSMOKING MRWOXDXCUU77.10 Alcohol abuse, uncomplicatedComments:ETOH ABSTINENCECOUNCELLING AND XHEANCLNMHXY52 Functional dyspepsiaComments:AVOID CAFFEINE, ETOH AND SPICY FOODSTUMS OR MYLANTA PRN CALL WITH PROBLEMS OR CONCERNSSMOKING QTHZCNCOZM16.210 Nicotine dependence, cigarettes, uncomplicatedComments:SMOKING CESSATION COUNCELLING MORE THAN 4 MINUTES SPENT DISSUCUSING SMOKING CESSATION CKUEVQY22.9 Atopic dermatitis, unspecifiedComments :SKIN CARE INSTRUCTIONS LOTION OR BABY OIL 2-3 APPLICATION PER DAYUSE MOISTURIZING SOAPAVOID PROLONGED WATER EXPOSUREAVOID USING HOT WATER IN DECVBLP68.9 Allergic rhinitis, unspecifiedComments:INCREASE PO FLUID USE ANTIHISTAMINE PRN SECOND HAND SMOKING AVOIDANCE SMOKING OKQUWTMRNU20.9 Umbilical hernia without obstruction or gangreneComments:STABLE ABDOMINAL BINDER PRNM15.9 Polyosteoarthritis, unspecifiedComments:EXERCISE/HEAT/ MESSAGETYLENOL OR MOTRIN PRNAVOID HEAVY LIFTINGWT LOSSM20.10 Hallux valgus ( acquired), unspecified footComments:EXERCISE/HEAT/MESSAGETYLENO OR MOTRIN PRNWT LOSSTHICK SHOESUSE SHOE YEOQAWORM55.3 OverweightComments:WT LOSS OPTIONS EXERCISE INSTRUCTIONSDIET OZAZGPVDWQDU67.9 Liver disease, unspecifiedComments: ASYMPTOMATIC AND STABLEF/ULABAVOID ETOH CMQURK22.9 Vitamin D deficiency, unspecifiedComments:INCREASE EXPOSURE TO SUNREVIEW OF DIET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, bilateralComments:TX,LAB BY HYWHYAGNXUVCCQ84.604 Pain in right legComments:TYLENOL OR MOTRIN PRN EXERCISE/HEAT/KGSOZSVO15.6 Mixed conductive and sensorineural hearing loss, bilateralComments:OBSERVE F/U WITH ENT PRN SMOKING XRZYTJYFFG57.33 Obstructive sleep apnea (adult) (pediatric)Comments: OBSERVEWT LOSS SMOKING GKDMZWSWTF86.561 Pain in right kneeComments:SMQCNIJLJ77 CoughComments:CHRONIC MOSTLY WHILE TAKING. CURRENT SMOKER.INCREASE CLEAR LIQUIDSSMOKING IZGCMZQHMJ85.02 Shortness of breathComments:ACUTE ON CHRONIC. NO T RESPONDING TO MDI INHALER. MAY BE RELATED TO EMERGING COMMON COLD OR RELATED TO NEW ARRYTHMIA SEEN ON EKG. DIRECTING TO ER FOR FURTHER EVALUATION.E87.6 HypokalemiaNew Medication:Potassium Chloride ER 10 Meq - 1 Tab PO DailyComments: F/U LAB DIETERY SUPPLEMENTFollow up:1 gllhaW92.5 Neoplasm of uncertain behavior of skinComments:RAISED LESION. IRREGULAR, MULTI COLORED, LARGER THAN PENCIL ERASER. WILL REFERE TO DERM.Referral:[facility] [place], XbaxvlvrtxiH34.9 Hypothyroidism, unspecifiedComments:MOST RECENT TSH 4.6. PRIOR TSH NORMAL. WILL REASSESS IN ONE MONTH WITH LAB.J20.9 Acute bronchitis, unspecifiedNew Medication:Amoxicillin 500 mg - 1 tab by mouth twice a dayPrednisone 20 mg - 3 tabs for 3 days, then 2 tabs for 3 days then 1 tab for 3 daysComments:INCREASE PO FLUIDRESTSMOKING CESSATION PHNWZTKCBJXP23.0 Paroxysmal atrial fibrillationComments:NEW IRREGULAR HEART RHYTHM CONFERMED ON EKC AND COMPAIRED TO PRIOR EKG FROM 2019. CONCERN FOR ATRIALFIBRILLATION AND SEQUELA. DIRECTED TO [facility] FOR FURTHER EVALUATION AND REPORTED TO DR. GIBSON BYPHONE IN ER. Functional Status Description No Information Available Mental Status Description No Information Available Referrals Refer to Reason for Referral Status Appt Date [facility] [place] IRREGULAR MULTI COLOR RAISED LESION TO Created RIGHT POSTERIOR UPPER ARM [address] [place] [address] [phone]
[2019-08-31 12:11] VITALS: BP 137/89
--- NOTE | 2019-08-31 12:41 | UC ---
Lower Extremity/Ankle HPI - HPI Summary HPI Summary: 53 yo man, who slipped on ice while leaving his barn evening of 08/28/19. He has increasing swelling in the medial malleolus and pain with weight bearing. - History of Current Complaint Chief Complaint: UCLowerExtremity Stated Complaint: LEFT ANKLE INJURY Hx Obtained From: Patient Onset/Duration: Sudden Onset, Lasting Days - 3 Severity Initially: Moderate Severity Currently: Moderate Pain Intensity: 7 Aggravating Factor(s): Standing, Ambulation Alleviating Factor(s): Rest, Elevation, Ice, OTC Meds - has been taking ibuprofen 800mg Able to Bear Weight: Yes - partial - Risk Factors Gout Risk Factors: Hypertension, Obesity DVT Risk Factors: Negative Septic Arthritis Risk Factor: Negative - Allergies/Home Medications Allergies/Adverse Reactions: Allergies Allergy/AdvReac Type Severity Reaction Status Date / Time No Known Allergies Allergy Verified 08/31/19 12:05 Home Medications: Home Medications Amlodipine Besylate [Norvasc] 10 mg PO DAILY 08/31/19 [History Confirmed ] Apixaban* [Eliquis*] 5 mg PO BID 08/31/19 [History Confirmed 08/31/19] Colchicine* [Colcrys*] 0.6 mg PO DAILY 08/31/19 [History Confirmed 08/31/19] Dexlansoprazole [Dexilant] 60 mg PO DAILY 08/31/19 [History Confirmed 08/31/19] Hydrochlorothiazide TAB* [Hydrodiuril TAB*] 25 mg PO DAILY 08/31/19 [History Confirmed 08/31/19] Levothyroxine TAB* [Synthroid TAB*] 25 mcg PO QAM 08/31/19 [History Confirmed ] Metoprolol Succinate [Metoprolol Succinate ER] 25 mg PO DAILY 08/31/19 [History Confirmed 08/31/19] Potassium Chlor TAB* [Klor Con ER TAB*] 10 meq PO DAILY 08/31/19 [History Confirmed 08/31/19] PMH/Surg Hx/FS Hx/Imm Hx Previously Healthy: Yes - recent onset of a fib Endocrine History: Hypothyroidism Cardiovascular History: Hypertension, Atrial Fibrillation - overnight observation due to onset of a fib last week GI/ History: Gastroesophageal Reflux - Surgical History Surgical History: None - Family History Known Family History: Positive: Cardiac Disease - Social History Occupation: Employed Full-time Alcohol Use: Occasionally Substance Use Type: None Smoking Status (MU): Heavy Every Day Tobacco Smoker Type: Cigarettes Amount Used/How Often: 1 ppd Review of Systems All Other Systems Reviewed And Are Negative: Yes Constitutional: Positive: Negative Skin: Positive: Negative Eyes: Positive: Negative ENT: Positive: Negative Respiratory: Positive: Negative Cardiovascular: Negative: Palpitations - converted back to sinus rhythm. Gastrointestinal: Positive: Negative Genitourinary: Positive: Negative Motor: Positive: Decreased ROM - left ankle Musculoskeletal: Positive: Arthralgia Neurological/Mental Status: Positive: Negative Psychological: Positive: Negative Is Patient Immunocompromised?: No Physical Exam Triage Information Reviewed: Yes Appearance: Well-Appearing, Pain Distress - mild to moderate, Obese Vital Signs: Initial Vital Signs Temp 98 F 08/31/19 12:08 Pulse 96 08/31/19 12:08 Resp 17 08/31/19 12:08 BP 137/89 08/31/19 12:08 Pulse Ox 100 08/31/19 12:08 ENT: Positive: Normal ENT inspection Neck: Positive: Supple, Nontender, No Lymphadenopathy Respiratory: Positive: Lungs clear, Normal breath sounds Cardiovascular: Positive: RRR, No Murmur Musculoskeletal: Positive: Strength Intact, No Edema, ROM Limited @ - left ankle Neurological Exam: Other - left ankle with moderate swelling and ecchymosis of the medial malleolus. Mild erythema of the first MTP joint but no pain Psychological Exam: Normal Skin Exam: Normal Diagnostics - Radiology No standard instances Radiology Interpretation Completed By: Radiologist - Patient Name: TAWANA HEREDIA Medical Record#: [id number] Ordering Physician: Omaira Alvarado MD Acct.#: [id number] : 1965 Age: 53 Sex: M [facility]: [facility] Exam Date: 08/31/19 1205 ADM Status: REG ER Order Information: ANKLE LEFT 3+VWS Accession Number: [id number] CPT: 95344 Indication: Left ankle pain. 3 views of the left ankle demonstrates no fracture or dislocation. No other bone or joint abnormalities identified. IMPRESSION: No fracture of the ankle is noted. <Electronically signed by Antonieta Ferrell MD in [place]> 08/31/19 1236 Dictated By: Antonieta Ferrell MD Dictated Date/Time: 08/31/19 1235 Transcribed Date/Time: 08/31/19 1235 Copy to: CC:Rai Benoit MD; [facility]; Omaira Alvarado MD Imaging - [facility] Imaging - [facility] Imaging - [facility] [id number] [place] [id number] ph [phone] ph [phone]) ph ([phone]) This report is only to be considered final once signed by the Provider(s) as displayed in the "<Electronically Signed by >" field (s). Absence of a signature indicates the report is in a draft status and still needs to be finalized. In the event this document was created by someone other than the signing Provider, the individual initiating the document will be listed in the "Entered by:" or "Dictated by:" melton. 1 of 1 Lower Extremity Course/Dx - Course Course Of Treatment: CAM walker and crutches, refer orthopedics Advised not to combine nsaid's and use of Eliquis and risks of this reviewed. - Differential Dx/Diagnosis Differential Diagnosis/HQI/PQRI: Fracture (Closed), Sprain, Strain Provider Diagnosis: Sprain of left ankle Discharge ED - Sign-Out/Discharge Documenting (check all that apply): Patient Departure All imaging exams completed and their final reports reviewed: Yes - Discharge Plan Condition: Stable Disposition: HOME Patient Education Materials: Ankle Sprain (ED) Referrals: Family [facility] [Primary Care Provider] - Dc Freeman MD [Medical Doctor] - Additional Instructions: Your ankle has been immobilized due to high grade sprain. Please call Dr. Freeman on Monday to arrange an orthopedic evaluation. Stop use of ibuprofen and use acetaminophen 650mg up to 4 times daily as needed for control of pain. Use ice to the medial ankle for 20 mintues every 2 to 3 hours, and keep your leg elevated as much as possible. - Billing Disposition and Condition Condition: STABLE Disposition: Home
[2019-08-31] MEDS ORDERED: Acetaminophen TAB* 325 MG PO ONE (12:43)
== END 2019-08-31 13:09 | disposition home or self-care (01) ==
LOC: UCCORT 11:20
DX: S93.402A Sprain of unspecified ligament of left ankle, initial encounter (principal); W00.0XXA Fall on same level due to ice and snow, initial encounter; Y93.89 Activity, other specified; Y92.71 Barn as the place of occurrence of the external cause; I48.91 Unspecified atrial fibrillation; I10 Essential (primary) hypertension; E03.9 Hypothyroidism, unspecified; K21.9 Gastro-esophageal reflux disease without esophagitis; Z79.01 Long term (current) use of anticoagulants; Z79.890 Hormone replacement therapy; Z79.899 Other long term (current) drug therapy; F17.210 Nicotine dependence, cigarettes, uncomplicated
CPT/HCPCS: 99213; A9270-GY; G0463